=== PATIENT | female | born 1955 | race Caucasian/White ===

== ENCOUNTER 2017-02-15 07:24 | Day surgery (SDC) | payer BC ==
[2017-02-12 13:53] VITALS: BMI 38.6
[~2017-02-15 07:24] MED LIST: ceFAZolin SODIUM 1 GM VIAL IVPB ONE
[2017-02-15 07:39] VITALS: TEMP 97.7
[2017-02-15] MEDS ORDERED: PROPOFOL 20 ML ONE ×3 (07:41→09:38)
[2017-02-15] MEDS ORDERED: MIDAZOLAM HCL 2 MG/2 ML SINGLE DOSE VIAL ONE (07:42)
[2017-02-15] MEDS ORDERED: SUCCINYLCHOLINE CHLORIDE 200 MG/10 ML VIAL ONE (07:42)
[2017-02-15] MEDS ORDERED: DEXAMETHASONE SOD PHOSPHATE 4 MG/1 ML VIAL ONE (07:45)
[2017-02-15] MEDS ORDERED: KETOROLAC TROMETHAMINE 30 MG/1 ML VIAL ONE (07:45)
[2017-02-15] MEDS ORDERED: ONDANSETRON 4 MG/2 ML VIAL ONE (07:45)
[2017-02-15] MEDS ORDERED: LIDOCAINE HCL/PF 2% SDV 5ML VIAL ONE (07:45)
[2017-02-15] MEDS ORDERED: ACETAMINOPHEN 325 MG TABLET (FP) PO PRN (09:14)
[2017-02-15] MEDS ORDERED: oxyCODONE HCL 5 MG TABLET PO PRN (09:14)
[2017-02-15] MEDS ORDERED: IBUPROFEN 400 MG TABLET (FP) PO PRN (09:14)
[2017-02-15] MEDS ORDERED: ONDANSETRON 4 MG/2 ML VIAL IVPUSH PRN (10:13)
[2017-02-15] MEDS ORDERED: LACTATED RINGERS SOLUTION 1,000 ML IV SCH (10:15)
--- NOTE | 2017-02-15 10:37 | HP ---
Admitting History and Physical - Admission History of Present Illness: 61 yo postmenopausal female with chief complaint of vaginal bleeding LMP 2007. s/p hysteroscopy D&C and polypectomy in 2014, reports new onset postmenopausal bleeding. she is s/p ultrasound which revealed a uterus measuring 7.9 x 5.3 cm, and a fundal myoma measuring 3.7 x 4 cm which obscured the endometrium. She was counseled regarding observation and endometrial sampling, she desired endometrial sampling via hysteroscopy, dilation and curettage History Source: Patient - Past Medical History Pulmonary: Yes: Asthma Gastrointestinal: Yes: Ulcerative Colitis ...: No ...Para: 0 Psych: Yes: Depression Musculoskeletal: Yes: Osteoarthritis, Other (Varicosities) Endocrine: Yes: Hypothyroidism - Past Surgical History Additional Past Surgical History: * 01/2014 - Varicose veins * 10/2009 - Breast reduction * Cholecystectomy - 04/2001 * 10/1999 - Sinus surgery * Thyroid Surgery - 05/1980 * 04/1975 - Second half ileostomy * 04/1974 - Illestomy * Tonsillectomy - 03/1960 - Smoking History Smoking history: Never smoked Have you smoked in the past 12 months: No - Alcohol/Substance Use Hx Alcohol Use: Yes (rarely) Home Medications - Allergies Allergies/Adverse Reactions: Allergies Allergy/AdvReac Type Severity Reaction Status Date / Time No Known Drug Allergies Allergy Verified 02/12/17 13:35 NSAIDS (Non-Steroidal AdvReac Intermediate Swelling Verified 02/12/17 13:58 Anti-Inflamma SEASONAL Allergy NASAL Uncoded 02/12/17 13:35 STUFFINESS - Home Medications Home Medications: Ambulatory Orders Ascorbic Acid/Vitamin E/Biotin [Hair Skin Nails-Biotin Gummies] 1 each PO DAILY 03/29/15 Esomeprazole Magnesium [Nexium] 2.5 mg PO DAILY PRN 03/29/15 Levothyroxine [Synthroid -] 175 mcg PO HS 03/29/15 Salmeterol/Fluticasone [Advair 100Mcg/50Mcg -] 1 inh IH DAILY 03/29/15 Sertraline HCl [Zoloft] 150 mg PO DAILY 03/29/15 Biotin 2,000 mcg PO DAILY 02/12/17 Cholecalciferol (Vitamin D3) [Vitamin D3] 2,000 unit PO DAILY 02/12/17 Difluprednate [Durezol] 1 drop OD DAILY 02/12/17 Ferrous Sulfate 65 mg PO ACDIN 02/12/17 L.acidoph,Paracasei, B.lactis [Probiotic] 1 each PO DAILY 02/12/17 Family Disease History - Family Disease History Family Disease History: Heart Disease: Father, Other: Mother (Breast cancer) Physical Examination Vital Signs: Vital Signs Temperature 97.7 F 02/15/17 10:08 Pulse Rate 68 02/15/17 10:08 Respiratory Rate 14 02/15/17 10:08 Blood Pressure 145/88 02/15/17 10:08 O2 Sat by Pulse Oximetry (%) 98 02/15/17 10:08 Constitutional: Yes: Well Nourished, No Distress, Calm Cardiovascular: Yes: Regular Rate and Rhythm Respiratory: Yes: Regular, CTA Bilaterally Gastrointestinal: Yes: Abdomen, Obese, Other (ileostomy) Edema: No Assessment/Plan 61 yo with postmenopausal bleeding, for hysteroscopy, dilation and curettage 1. Consents reviewed and signed. Reviewed risks including but not limited to infection, bleeding uterine perforation, damage to surrounding organs such as bowel and bladder. Patient expressed understanding and gives consent to procedure 2. No antibiotics indicated 3. No beta blockers given 4. Will proceed to OR
--- NOTE | 2017-02-15 10:46 | OP ---
Operative Note - Note: Operative Date: 02/15/17 Pre-Operative Diagnosis: postmenopausal bleeding Operation: hysteroscopy, dilation and curettage Findings: atrophic appearing endometrium Post-Operative Diagnosis: Same as Pre-op Surgeon: Renee Broussard Anesthesia: MAC Estimated Blood Loss (mls): 5 Operative Report Dictated: Yes
--- NOTE | 2017-02-15 11:52 | OP ---
DATE OF OPERATION: 02/15/2017 ATTENDING PHYSICIAN: Renee Broussard MD PREOPERATIVE DIAGNOSIS: Postmenopausal bleeding. POSTOPERATIVE DIAGNOSIS: Postmenopausal bleeding. SURGERY: Hysteroscopy, dilation and curettage. FINDINGS: Atrophic endometrium. SPECIMENS SENT: Endometrial curettings. INDICATION: The patient is a 61-year-old postmenopausal woman with a history of postmenopausal bleeding. She was counseling regarding observation, surgical management, and endometrial sampling. She opted for a hysteroscopy, dilation and curettage. She was counseled regarding risks, benefits, alternatives, and complications of the procedure including infection, bleeding, damage to other organs such as bowel, bladder, uterine perforation. She expressed understanding and was brought to the operating room. DESCRIPTION OF PROCEDURE: When anesthesia was found to be adequate, the patient was prepped and draped in the usual sterile fashion and placed in the dorsal lithotomy position using Stiven stirrups. A leslie speculum was placed in the patient's vagina, and the anterior lip of the cervix was grasped using a single-tooth tenaculum. The cervix was then gently dilated to accommodate a 3.5-mm hysteroscope. The hysteroscope was inserted, and a thin endometrial cavity was noted. No polyps noted. Gentle, sharp curetting was performed, however, was limited by the patient's habitus. All of the instruments were removed from the patient's vagina. The patient tolerated the procedure well. Estimated blood loss was less than 5 mL. The patient was brought to the recovery room in stable condition. Jacobo [id number] MTDD
[2017-02-15 12:39] VITALS: BP 127/76; PULSE 72
--- NOTE | 2017-02-16 12:23 | PATH ---
Surgical Pathology Report Patient Name: ANJU GARZON [facility]. Rec. #: [id number] /Age/Gender: 1955 (Age: 61) / F Account: [id number] Location: [facility] Taken: 02/15/2017 Received: 02/15/2017 Reported: 02/16/2017 Physicians: Renee Broussard Specimen(s) Received ENDOMETRIAL CURETTINGS Clinical History Postmenopausal bleeding Final Diagnosis ENDOMETRIUM, CURETTAGE: MINUTE FRAGMENTS OF ENDOCERVICAL-TYPE TISSUE. NO ENDOMETRIAL TISSUE IDENTIFIED. Electronically Signed Robbie May M.D. Gross Description Received in formalin labeled "endometrial curettings" is a 0.1 x 0.1 x 0.1 cm aggregate of castillo soft tissue fragments. The specimen is entirely submitted in one cassette. /02/15/201702/15/2017
== END 2017-02-15 12:39 | disposition home or self-care (01) ==
LOC: JASU-SURG 07:24
PROVIDERS: ATTEND Obstetrics & Gynecology
PROC: 0UDB8ZX Extraction of Endometrium, Via Natural or Artificial Opening Endoscopic, Diagnostic (ICD-10-PCS; principal; 2017-02-15 09:00)
DX: N95.0 Postmenopausal bleeding (principal)
CPT/HCPCS: 88305-TC; 94760